=== PATIENT | male | born 1975 | race Caucasian/White ===

== ENCOUNTER 2019-08-06 09:54 | Emergency (ER) | payer BC, OTHER ==
[2019-08-06] MEDS ORDERED: MORPHINE 4 MG/ML SYR ONE (10:34)
[2019-08-06] MEDS ORDERED: ONDANSETRON 4 MG/2 ML VIAL ONE (10:34)
[2019-08-06 10:59] LABS: Absolute Lymphocytes (CBC) 2.2 K/uL (0.7-4.9); Basophils % 0.9 % (0-1.3); Hematocrit 46.2 % (39.6-49.0); Lymphocytes % 28.3 % (15.3-44.8); MPV 8.5 fL (7.6-11.3); RBC Red Blood Cell Count 5.33 M/uL (4.33-5.43)
[2019-08-06 11:17] LABS: ALT/SGPT 28 U/L (12-78); AST/SGOT 17 U/L (15-37); Albumin 3.4 g/dL (3.4-5.0); Alkaline Phosphatase 110 U/L (45-117); BUN Blood Urea Nitrogen 13 mg/dL (7-18); Bicarbonate 25 mmol/L (21-32); Bilirubin Total 0.9 mg/dL (0.2-1.0); Glucose Level 209 mg/dL (74-106); Potassium 3.8 mmol/L (3.5-5.1); Protein, Total 7.8 g/dL (6.4-8.2); Sodium Level 136 mmol/L (136-145)
[2019-08-06] MEDS ORDERED: FENTANYL CITR 100 MCG/2 ML ONE (11:38)
--- NOTE | 2019-08-06 11:56 | EDPHYS ---
Physician Documentation [facility] Name: Dari Cedeño Age: 43 yrs Sex: Male : 1975 Arrival Date: 08/06/2019 Time: 09:57 Bed 5 Private MD: ED Physician Alan eBrry HPI: 08/06 10:28 This 43 yrs old Male presents to ER via Ambulatory with complaints of Abscess.jmm 10:28 The patient presents with an abscess of the scrotum. Onset: The symptoms/episode jmm began/occurred gradually, 2 day(s) ago. Possible cause(s): unknown. Associated signs and symptoms: Pertinent positives: erythema, swelling, Pertinent negatives: fever. This is a 43 year old male with a history of dm that presents to the ED with complaints of left groin pain and swelling beginning this past . Patient denies fever or chills. Pain intensified last night. . Historical: - Allergies: 10:08 No Known Allergies; hb - Home Meds: 10:08 None [Active]; hb - PMHx: 10:08 Diabetes - NIDDM; hb - PSHx: 10:08 Abscess - scrotum; Appendectomy; Tonsillectomy; hb 10:09 Vasectomy; hb - Immunization history:: Adult Immunizations up to date. - Coronavirus screen:: The patient has NOT traveled to [place], [place], or [place] in the past 14 days. The patient has NOT had contact with known/suspected case of Coronavirus? Proceed with normal triage procedures. - Social history:: Smoking status: Patient reports the use of cigarette tobacco products, smokes two packs cigarettes per day. - Ebola Screening: : No symptoms or risks identified at this time. ROS: 10:28 Constitutional: Negative for fever, chills, and weight loss, Cardiovascular: Negative jmm for chest pain, palpitations, and edema, Respiratory: Negative for shortness of breath, cough, wheezing, and pleuritic chest pain. 10:28 Skin: Positive for erythema, swelling. 10:28 All other systems are negative. Exam: 10:28 Constitutional: This is a well developed, well nourished patient who is awake, alert, jmm and in no acute distress. Head/Face: atraumatic. Eyes: EOMI, no conjunctival erythema appreciated ENT: Moist Mucus Membranes Neck: Trachea midline, Supple Chest/axilla: Normal chest wall appearance and motion. Cardiovascular: Regular rate and rhythm. No edema appreciated Respiratory: Normal respirations, no respiratory distress appreciated Abdomen/GI: Non distended, soft Back: Normal ROM 10:28 Skin: swelling and purulent drainage noted to the left groin. 10:28 Neuro: Orientation: is normal, Mentation: is normal, appropriate for stated age, Memory: is normal. 10:28 Psych: Behavior/mood is pleasant, cooperative. Vital Signs: 10:09 BP 159 / 86; Pulse 78; Resp 16; Temp 98.1(O); Pulse Ox 100% on R/A; Weight 125.65 kg; hb Height 6 ft. (182.88 cm); Pain 8/10; 11:04 BP 125 / 68; Pulse 79; Resp 16; Pulse Ox 99% on R/A; em 10:09 Body Mass Index 37.57 (125.65 kg, 182.88 cm) hb MDM: 10:23 Patient medically screened. toma 10:30 ED course: A large amount of foul smelling purulent drainage noted upon removing m bandage. . 11:53 Data reviewed: vital signs, nurses notes. Counseling: I had a detailed discussion with [facility] the patient and/or guardian regarding: the historical points, exam findings, and any diagnostic results supporting the discharge/admit diagnosis, lab results, the need for outpatient follow up, to return to the emergency department if symptoms worsen or persist or if there are any questions or concerns that arise at home. ED course: Wound copious irrigated. A large amount of purulent drainage was expressed. Labs unremarkable. Patient is advised to follow up with gen surgery/urology for reevaluation. Patient otherwise given strict return precautions. Patient understood and agrees with the plan of care. . 08/06 10:26 Order name: CBC with Diff; Complete Time: 11:12 [facility] 08/06 10:26 Order name: CMP; Complete Time: 11:42 [facility] 08/06 10:26 Order name: Lactate; Complete Time: 11:12 [facility] 08/06 10:26 Order name: Procalcitonin; Complete Time: 11:42 [facility] 08/06 10:26 Order name: Saline Lock; Complete Time: 10:53 [facility] Administered Medications: 10:45 Drug: Zofran 4 mg Route: IVP; Site: left forearm; em 11:00 Follow up: Response: No adverse reaction em 10:47 Drug: morphine 4 mg Route: IVP; Site: left forearm; em 11:00 Follow up: Response: No adverse reaction; Marked relief of symptoms; Pain is decreased em 11:34 Drug: fentaNYL (PF) 50 mcg Route: IVP; Site: left forearm; em 11:38 Follow up: Response: No adverse reaction hb 12:09 Drug: Bactrim (160 mg-800 mg (DS) 1 tablet Route: PO; em 12:18 Follow up: Response: Medication administered at discharge. hb 12:09 Drug: Doxycycline 100 mg Route: PO; em 12:18 Follow up: Response: Medication administered at discharge. hb Disposition: 08/06/19 11:55 Discharged to Home. Impression: Cutaneous abscess of groin. - Condition is Stable. - Discharge Instructions: Skin Abscess. - Prescriptions for Tylenol- Codeine #3 300-30 mg Oral Tablet - take 1 tablet by ORAL route every 6 hours As needed; 20 tablet. Doxycycline Hyclate 100 mg Oral Tablet - take 1 tablet by ORAL route every 12 hours; 20 tablet. Bactrim DS 800- 160 mg Oral Tablet - take 1 tablet by ORAL route every 12 hours for 10 days; 20 tablet. - Medication Reconciliation Form, Thank You Letter, Antibiotic Education, Prescription Opioid Use, Work release form form. - Follow up: Chris Hamlin MD; When: 2 - 3 days; Reason: Recheck today's complaints, Continuance of care, Re-evaluation by your physician. Follow up: Micheal Gayle MD; When: 2 - 3 days; Reason: Recheck today's complaints, Continuance of care, Re-evaluation by your physician. Addendum: 08/08/2019 07:03 Co-signature as Attending Physician, Alan Berry MD I agree with the assessment and c mujica plan of care. Signatures: Dispatcher [employer] Alan Riggs MD MD cha Mickail, Joel, PA PA jmm Munoz, Edgar, RN RN em Judy Vera RN RN aa5 Kristen Martinez RN RN Corrections: (The following items were deleted from the chart) 08/06 11:32 10:28 Pelvis W/Cont+CT.RAD.BRZ ordered. EDMS EDMS 11:51 10:28 This is a 43 year old male with a history of dm that presents to the ED with finesse complaints of left scrotal pain and swelling beginning this past . Patient denies fever or chills. Pain intensified last night. . [facility] 11:51 10:28 Skin: swelling noted to the scrotum. [facility] 12:22 11:55 08/06/2019 11:55 Discharged to Home. Impression: Cutaneous abscess of groin. em Condition is Stable. Forms are Medication Reconciliation Form, Thank You Letter, Antibiotic Education, Prescription Opioid Use. Follow up: Chris Hamlin; When: 2 - 3 days; Reason: Recheck today's complaints, Continuance of care, Re-evaluation by your physician. Follow up: Micheal Gayle; When: 2 - 3 days; Reason: Recheck today's complaints, Continuance of care, Re-evaluation by your physician. [facility]
--- NOTE | 2019-08-06 11:56 | ER ---
Nurse's Notes [facility] Name: Dari Cedeño Age: 43 yrs Sex: Male : 1975 Arrival Date: 08/06/2019 Time: 09:57 Bed 5 Private MD: Diagnosis: Cutaneous abscess of groin Presentation: 08/06 10:06 Presenting complaint: Abscess on scrotum x 3 days, pain radiates to left thigh. hb Transition of care: patient was not received from another setting of care. Onset of symptoms was October 03, 2019. Risk Assessment: Do you want to hurt yourself or someone else? Patient reports no desire to harm self or others. Initial Sepsis Screen: Does the patient meet any 2 criteria? No. Patient's initial sepsis screen is negative. Does the patient have a suspected source of infection? No. Patient's initial sepsis screen is negative. Care prior to arrival: None. 10:06 Method Of Arrival: Ambulatory hb 10:06 Acuity: ANGEL 4 hb Historical: - Allergies: 10:08 No Known Allergies; hb - Home Meds: 10:08 None [Active]; hb - PMHx: 10:08 Diabetes - NIDDM; hb - PSHx: 10:08 Abscess - scrotum; Appendectomy; Tonsillectomy; hb 10:09 Vasectomy; hb - Immunization history:: Adult Immunizations up to date. - Coronavirus screen:: The patient has NOT traveled to [place], [place], or [place] in the past 14 days. The patient has NOT had contact with known/suspected case of Coronavirus? Proceed with normal triage procedures. - Social history:: Smoking status: Patient reports the use of cigarette tobacco products, smokes two packs cigarettes per day. - Ebola Screening: : No symptoms or risks identified at this time. Screenin:10 Abuse screen: Denies threats or abuse. Nutritional screening: No deficits noted. em Tuberculosis screening: No symptoms or risk factors identified. Fall Risk None identified. Assessment: 10:22 General: Appears in no apparent distress. comfortable, Behavior is calm, cooperative, em Denies fever. Pain: Complains of pain in groin Pain currently is 2 out of 10 on a pain scale. at worst was 10 out of 10 on a pain scale. Pain began 2-3 days ago. Aggravated by exercise, repositioning. Neuro: Level of Consciousness is awake, alert, obeys commands, Oriented to person, place, time, situation, Appropriate for age. Cardiovascular: Capillary refill < 3 seconds Patient's skin is warm and dry. Respiratory: Airway is patent Respiratory effort is even, unlabored, Respiratory pattern is regular, symmetrical. GI: Patient currently denies nausea, vomiting. : Swelling noted. Derm: Skin is intact, is healthy with good turgor, Skin is pink, warm \T\ dry. Musculoskeletal: Capillary refill < 3 seconds, Range of motion: intact in all extremities. 11:00 Reassessment: Patient appears in no apparent distress at this time. Patient and/or em family updated on plan of care and expected duration. Pain level reassessed. Patient is alert, oriented x 3, equal unlabored respirations, skin warm/dry/pink. Patient denies pain at this time. Patient states feeling better. Vital Signs: 10:09 BP 159 / 86; Pulse 78; Resp 16; Temp 98.1(O); Pulse Ox 100% on R/A; Weight 125.65 kg; hb Height 6 ft. (182.88 cm); Pain 8/10; 11:04 BP 125 / 68; Pulse 79; Resp 16; Pulse Ox 99% on R/A; em 10:09 Body Mass Index 37.57 (125.65 kg, 182.88 cm) hb ED Course: 09:57 Patient arrived in ED. mr 10:07 Triage completed. hb 10:09 Arm band placed on. hb 10:10 Chano Recinos, RN is Primary Nurse. em 10:10 Patient has correct armband on for positive identification. Placed in gown. Bed in low em position. Call light in reach. Side rails up X2. 10:17 Steffen Hinton PA is PHCP. louise 10:17 Alan Berry MD is Attending Physician. jmm 10:34 Radiology exam delayed due to lab results not completed at this time. (BUN/Creatinine). bq 10:45 Initial lab(s) drawn, by me, sent to lab. Inserted saline lock: 20 gauge in left hb forearm, using aseptic technique. Blood collected. 11:40 Assist provider with I \T\ D: of an abscess on left scrotal area Set up I\T\D tray. hb Performed by Steffen MILLS Dressing with 4X4s, tape Patient tolerated well. 11:55 Chris Hamlin MD is Referral Physician. [facility] 11:55 Micheal Gayle MD is Referral Physician. [facility] 12:16 IV discontinued, intact, bleeding controlled, No redness/swelling at site. Pressure hb dressing applied. Administered Medications: 10:45 Drug: Zofran 4 mg Route: IVP; Site: left forearm; em 11:00 Follow up: Response: No adverse reaction em 10:47 Drug: morphine 4 mg Route: IVP; Site: left forearm; em 11:00 Follow up: Response: No adverse reaction; Marked relief of symptoms; Pain is decreased em 11:34 Drug: fentaNYL (PF) 50 mcg Route: IVP; Site: left forearm; em 11:38 Follow up: Response: No adverse reaction hb 12:09 Drug: Bactrim (160 mg-800 mg (DS) 1 tablet Route: PO; em 12:18 Follow up: Response: Medication administered at discharge. hb 12:09 Drug: Doxycycline 100 mg Route: PO; em 12:18 Follow up: Response: Medication administered at discharge. Outcome: 11:55 Discharge ordered by MD. [facility] 12:16 Discharged to home ambulatory, with family. 12:16 Condition: good 12:16 Discharge instructions given to patient, family, Instructed on discharge instructions, follow up and referral plans. medication usage, wound care, Demonstrated understanding of instructions, follow-up care, medications, wound care, Prescriptions given X 3. 12:22 Patient left the ED. em Signatures: Steffen Hinton PA PA [facility] Divya Mijares Kirstie Chano Franco, RN RN Kristen Martinez RN RN hb
[2019-08-06] MEDS ORDERED: SMZ./TMP. 800/160 MG TABLET ONE (12:03)
[2019-08-06] MEDS ORDERED: DOXYCYCLINE 100 MG CAP PO ONE (12:04)
[2019-08-06 12:32] VITALS: TEMP 98.1
[2019-08-06 12:33] VITALS: BP 125/68; O2SAT 99
== END 2019-08-06 12:22 | disposition home or self-care (01) ==
LOC: ER 09:54
DX: L02.214 Cutaneous abscess of groin (principal); E11.9 Type 2 diabetes mellitus without complications; F17.210 Nicotine dependence, cigarettes, uncomplicated
CPT/HCPCS: 85025; 36415; 83605; 80053; 84145; 96375; 96374; 99284; J3010; J2405

== ENCOUNTER 2020-03-18 12:09 | Emergency (ER) | payer OTHER, SELFPAY ==
[2020-03-18 12:30] LABS: Absolute Lymphocytes (CBC) 1.2 K/uL (0.7-4.9); Basophils % 0.9 % (0-1.3); Hematocrit 44.8 % (39.6-49.0); Lymphocytes % 23.3 % (15.3-44.8); MPV 8.3 fL (7.6-11.3); RBC Red Blood Cell Count 5.15 M/uL (4.33-5.43)
[2020-03-18 12:31] LABS: Protime INR 1.03
--- NOTE | 2020-03-18 12:35 | RAD REPORT ---
EXAM DESCRIPTION: RAD - Chest Single View - 03/18/2020 12:29 pm CLINICAL HISTORY: Dizziness Chest pain. COMPARISON: CHEST PA AND LAT 2 VIEW dated 09/26/2008 FINDINGS: Portable technique limits examination quality. The lungs are grossly clear. The heart is normal in size. No displaced fractures. IMPRESSION: No acute intrathoracic process suspected.
[2020-03-18] MEDS ORDERED: MECLIZINE HCL 12.5 MG TAB ONE (12:43)
[2020-03-18 12:52] LABS: ALT/SGPT 34 U/L (12-78); AST/SGOT 17 U/L (15-37); Albumin 3.4 g/dL (3.4-5.0); Alkaline Phosphatase 113 U/L (45-117); BUN Blood Urea Nitrogen 15 mg/dL (7-18); Bicarbonate 25 mmol/L (21-32); Bilirubin Direct 0.2 mg/dL (0-0.2); Bilirubin Total 0.6 mg/dL (0.2-1.0); Glucose Level 260 mg/dL (74-106); Magnesium 2.1 mg/dL (1.8-2.4); NT PRO-BNP 30 pg/mL (<125); Potassium 3.9 mmol/L (3.5-5.1); Sodium Level 136 mmol/L (136-145); Troponin (Emerg Dept Use Only) < 0.02 ng/mL (0.0-0.045)
--- NOTE | 2020-03-18 13:20 | RAD REPORT ---
EXAM DESCRIPTION: CT - Head Brain Wo Cont - 03/18/2020 1:07 pm CLINICAL HISTORY: DIZZINESS Headache, drowsiness COMPARISON: No comparisons TECHNIQUE: All CT scans are performed using dose optimization technique as appropriate and may inclu de automated exposure control or mA/KV adjustment according to patient size. FINDINGS: No intracranial hemorrhage, hydrocephalus or extra-axial fluid collection.No areas of brai n edema or evidence of midline shift. The paranasal sinuses and mastoids are clear. The calvarium is intact. IMPRESSION: No acute intracranial abnormality.
[2020-03-18 14:24] LABS: Urine Blood NEGATIVE (NEG); Urine Glucose 2+ (NEG); Urine Protein NEGATIVE (NEG); Urine Specific Gravity 1.025 (1.005-1.030); Urine pH 5.5 (5.0-7.0)
[2020-03-18 14:56] LABS: Barbiturates NEGATIVE (NEGATIVE); Benzodiazepines NEGATIVE (NEGATIVE); Cocaine NEGATIVE (NEGATIVE); METHAMPHETAM NEGATIVE (NEGATIVE); Methadone NEGATIVE (NEGATIVE); Opiates NEGATIVE (NEGATIVE); Phencyclidine NEGATIVE (NEGATIVE); THC Cannibis NEGATIVE (NEGATIVE)
--- NOTE | 2020-03-18 17:48 | ER ---
Nurse's Notes [facility] Name: Dari Cedeño Age: 44 yrs Sex: Male : 1975 Arrival Date: 03/18/2020 Time: 12:12 Bed 19 Private MD: Diagnosis: Benign paroxysmal vertigo;Hyperglycemia, unspecified Presentation: 03/18 12:19 Chief complaint: EMS states: CALLED TO PT HOME FOR NAUSEA, VOMITING AND DIZZINESS. PT ls4 FOUND TO BE DIAPHORETIC AND VOMITING UPON ARRIVAL. VSS. 250 NS AND 8 MG ZOFRAN GIVEN BY EMS. BGL 284. Coronavirus screen: At this time, the client does not indicate any symptoms associated with coronavirus-19. Ebola Screen: No symptoms or risks identified at this time. Initial Sepsis Screen: Does the patient meet any 2 criteria? No. Patient's initial sepsis screen is negative. Does the patient have a suspected source of infection? No. Patient's initial sepsis screen is negative. Risk Assessment: Do you want to hurt yourself or someone else? Patient reports no desire to harm self or others. Onset of symptoms was March 18, 2020 at 11:30. Care prior to arrival: Medication(s) given: Normal saline infusion, 250 ML zofran 8 mg, IV initiated. 20 GA, in the right forearm, Glucose check: 284. Activity prior to arrival: vomiting. Transition of care: patient was not received from another setting of care. 12:19 Method Of Arrival: EMS: [facility] ls4 12:19 Acuity: ANGEL 2 ls4 Triage Assessment: 12:26 General: Appears in no apparent distress. comfortable, obese, Behavior is calm, ls4 cooperative. Pain: Denies pain. Neuro: No deficits noted. Cardiovascular: Denies chest pain, Chest pain is denied. Respiratory: Airway is patent Respiratory effort is even, unlabored, Respiratory pattern is regular, Denies cough, shortness of breath labored breathing, pain with respiration, pain with cough, pain with movement. GI: Abdomen is non-distended, obese, Bowel sounds present X 4 quads. Abd is soft and non tender X 4 quads. Reports VOMITTING EARLIER TODAY, SYMPTOMS RESOLVED. : No deficits noted. No signs and/or symptoms were reported regarding the genitourinary system. Derm: No deficits noted. No signs and/or symptoms reported regarding the dermatologic system. Musculoskeletal: No deficits noted. No signs and/or symptoms reported regarding the musculoskeletal system. Historical: - Allergies: 12:26 No Known Allergies; ls4 - PMHx: 12:26 Diabetes - NIDDM; ls4 - PSHx: 12:26 Abscess - scrotum; Appendectomy; Tonsillectomy; Vasectomy; ls4 - Immunization history:: Adult Immunizations up to date, Last tetanus immunization: < 5 years ago Flu vaccine is not up to date. Patient has never been vaccinated. - Social history:: Smoking status: Patient reports the use of cigarette tobacco products, smokes one pack cigarettes per day. Screenin:39 Abuse screen: Denies threats or abuse. Denies injuries from another. Nutritional ls4 screening: No deficits noted. Tuberculosis screening: No symptoms or risk factors identified. Fall Risk None identified. Assessment: 12:29 General: SEE TRIAGE ASSESSMENT . ls4 14:00 Reassessment: Patient appears in no apparent distress at this time. Patient and/or ls4 family updated on plan of care and expected duration. Pain level reassessed. Patient is alert, oriented x 3, equal unlabored respirations, skin warm/dry/pink. 15:00 Reassessment: Patient appears in no apparent distress at this time. Patient and/or ls4 family updated on plan of care and expected duration. Pain level reassessed. Patient is alert, oriented x 3, equal unlabored respirations, skin warm/dry/pink. 16:04 Reassessment: Patient appears in no apparent distress at this time. Patient and/or ls4 family updated on plan of care and expected duration. Pain level reassessed. Patient is alert, oriented x 3, equal unlabored respirations, skin warm/dry/pink. Vital Signs: 12:12 BP 143 / 70 LA (auto/reg); Pulse 75; Resp 17; Temp 96.7; Pulse Ox 99% on R/A; Weight jp3 120.2 kg (R); Height 6 ft. (182.88 cm) (R); Pain 0/10; 13:30 BP 139 / 81; Pulse 59; Resp 16; Pulse Ox 99% on R/A; Pain 0/10; ls4 14:30 BP 109 / 65; Pulse 60; Resp 16; Pulse Ox 99% on R/A; Pain 0/10; ls4 15:30 BP 116 / 68; Pulse 62; Resp 16; Pulse Ox 99% on R/A; Pain 0/10; ls4 16:30 BP 123 / 73; Pulse 62; Resp 16; Pulse Ox 99% on R/A; Pain 0/10; ls4 17:59 BP 127 / 65; Pulse 65; Resp 16; Temp 98.0(O); Pulse Ox 99% on R/A; Pain 0/10; ls4 12:12 Body Mass Index 35.94 (120.20 kg, 182.88 cm) jp3 ED Course: 12:12 Patient arrived in ED. ls4 12:12 Elvis Herzog NP is PHCP. pm1 12:12 Alan Berry MD is Attending Physician. pm1 12:13 Patient has correct armband on for positive identification. Bed in low position. Call jp3 light in reach. Side rails up X2. Warm blanket given. Verbal reassurance given. teletypesetter monitor on. Pulse ox on. NIBP on. 12:14 Patient maintains SpO2 saturation greater than 95% on room air. jp3 12:15 Arm band placed on. ls4 12:15 Initial lab(s) drawn, by me, sent to lab. EKG done, by ED staff, reviewed by Alan Berry MD. Maintain EMS IV. Dressing intact. Good blood return noted. Site clean \T\ dry. Gauge \T\ site: 20gauge Left Forearm. 12:22 Triage completed. ls4 12:29 XRAY Chest (1 view) In Process Unspecified. EDMS 12:29 XRAY Chest (1 view) Sent. ls4 12:42 Shani Dailey, RN is Primary Nurse. ls4 13:08 CT Head Brain wo Cont In Process Unspecified. EDMS 14:00 Urine collected: clean catch specimen, clear, alonzo colored, Legal drug screen obtained jp3 per protocol. 16:09 No provider procedures requiring assistance completed. ls4 16:49 Repeat lab(s) drawn. by me, sent to lab. jp3 16:50 Troponin (emerg Dept Use Only) Sent. jp3 Administered Medications: 12:29 Drug: Meclizine 50 mg Route: PO; ls4 13:01 Follow up: Response: No adverse reaction; Marked relief of symptoms ls4 12:29 Drug: NS 0.9% 1000 ml Route: IV; Rate: 1000 ml; Site: right forearm; ls4 20:28 Follow up: IV Intake: 1000ml ls4 Intake: 20:28 IV: 1000ml; Total: 1000ml. ls4 Outcome: 17:48 Discharge ordered by . cassy 18:24 Patient left the ED. ls4 Signatures: Dispatcher [employer] EDMS Ngoc Brooks, EDDA PETERSON-Elvis Martin NP [employer] ATTEND[employer] pm1 Anders Bustillo jp3 Shani Dailey, RN RN ls4
--- NOTE | 2020-03-18 17:48 | EDPHYS ---
Physician Documentation [facility] Name: Dari Cedeño Age: 44 yrs Sex: Male : 1975 Arrival Date: 03/18/2020 Time: 12:12 Bed 19 Private MD: ED Physician Alan Berry HPI: 03/18 16:44 This 44 yrs old Male presents to ER via EMS with complaints of Dizziness. pm1 16:44 The patient presents with vertigo. Onset: The symptoms/episode began/occurred 1 hour pm1 prior to arrival. Context: occurred at home, occurred while the patient was sitting, and moving head. just prior to the episode the patient experienced no apparent symptoms. Modifying factors: The symptoms are alleviated by holding head still, the symptoms are aggravated by movement of head, changing position. Associated signs and symptoms: Pertinent negatives: abdominal pain, chest pain, numbness, tingling. Severity of symptoms: in the emergency department the symptoms have improved improved with zofran by EMS. Patient's baseline: Neuro: alert and fully oriented, Motor: no deficits, Ambulation: walks without assistance, Speech: normal. The patient has not experienced similar symptoms in the past, but friend has similar symptoms. The patient has not recently seen a physician. Historical: - Allergies: 12:26 No Known Allergies; ls4 - PMHx: 12:26 Diabetes - NIDDM; ls4 - PSHx: 12:26 Abscess - scrotum; Appendectomy; Tonsillectomy; Vasectomy; ls4 - Immunization history:: Adult Immunizations up to date, Last tetanus immunization: < 5 years ago Flu vaccine is not up to date. Patient has never been vaccinated. - Social history:: Smoking status: Patient reports the use of cigarette tobacco products, smokes one pack cigarettes per day. ROS: 16:44 Constitutional: Negative for fever, chills, and weight loss, Cardiovascular: Negative pm1 for chest pain, palpitations, and edema, Respiratory: Negative for shortness of breath, cough, wheezing, and pleuritic chest pain, Abdomen/GI: Negative for abdominal pain, nausea, vomiting, diarrhea, and constipation, Back: Negative for injury and pain, MS/Extremity: Negative for injury and deformity, Skin: Negative for injury, rash, and discoloration. 16:44 Neuro: Positive for dizziness, Negative for headache, numbness, tingling, weakness. Exam: 16:44 Constitutional: This is a well developed, well nourished patient who is awake, alert, pm1 and in no acute distress. Head/Face: Normocephalic, atraumatic. Neck: Trachea midline, no thyromegaly or masses palpated, and no cervical lymphadenopathy. Supple, full range of motion without nuchal rigidity, or vertebral point tenderness. No Meningismus. 16:44 Back: No spinal tenderness. No costovertebral tenderness. Full range of motion. Skin: Warm, dry with normal turgor. Normal color with no rashes, no lesions, and no evidence of cellulitis. MS/ Extremity: Pulses equal, no cyanosis. Neurovascular intact. Full, normal range of motion. 16:44 Cardiovascular: Exam negative for acute changes, Rate: normal, Rhythm: regular, Pulses: no pulse deficits are appreciated, Edema: is not appreciated. 16:44 Respiratory: Exam negative for acute changes, respiratory distress, shortness of breath. 16:44 Abdomen/GI: Exam negative for acute changes, Inspection: obese Palpation: abdomen is soft and non-tender, in all quadrants. 16:44 Neuro: Exam negative for acute changes, Orientation: is normal, Mentation: is normal, Motor: is normal, moves all fours. Vital Signs: 12:12 BP 143 / 70 LA (auto/reg); Pulse 75; Resp 17; Temp 96.7; Pulse Ox 99% on R/A; Weight jp3 120.2 kg (R); Height 6 ft. (182.88 cm) (R); Pain 0/10; 13:30 BP 139 / 81; Pulse 59; Resp 16; Pulse Ox 99% on R/A; Pain 0/10; ls4 14:30 BP 109 / 65; Pulse 60; Resp 16; Pulse Ox 99% on R/A; Pain 0/10; ls4 15:30 BP 116 / 68; Pulse 62; Resp 16; Pulse Ox 99% on R/A; Pain 0/10; ls4 16:30 BP 123 / 73; Pulse 62; Resp 16; Pulse Ox 99% on R/A; Pain 0/10; ls4 17:59 BP 127 / 65; Pulse 65; Resp 16; Temp 98.0(O); Pulse Ox 99% on R/A; Pain 0/10; ls4 12:12 Body Mass Index 35.94 (120.20 kg, 182.88 cm) jp3 MDM: 12:12 Patient medically screened. pm1 16:47 Data reviewed: vital signs. Data interpreted: Pulse oximetry: on room air is 99 %. pm1 Interpretation: normal. 17:48 Counseling: I had a detailed discussion with the patient and/or guardian regarding: the kb historical points, exam findings, and any diagnostic results supporting the discharge/admit diagnosis, lab results, radiology results, the need for outpatient follow up, a family practitioner, to return to the emergency department if symptoms worsen or persist or if there are any questions or concerns that arise at home. 03/18 12:13 Order name: Basic Metabolic Panel; Complete Time: 13:17 pm03/18 12:13 Order name: CBC with Diff; Complete Time: 12:35 pm1 03/18 12:13 Order name: LFT's; Complete Time: 13:17 pm03/18 12:13 Order name: Magnesium; Complete Time: 13:17 pm03/18 12:13 Order name: NT PRO-BNP; Complete Time: 13:17 pm03/18 12:13 Order name: PT-INR; Complete Time: 12:35 pm1 03/18 12:13 Order name: Troponin (emerg Dept Use Only); Complete Time: 13:17 pm03/18 12:13 Order name: XRAY Chest (1 view); Complete Time: 13:17 pm03/18 12:13 Order name: CT Head Brain wo Cont; Complete Time: 13:25 pm03/18 12:19 Order name: UDS; Complete Time: 14:58 pm03/18 12:19 Order name: ETOH Level; Complete Time: 13:17 pm03/18 14:21 Order name: Urine Dipstick--Ancillary (enter results); Complete Time: 14:27 ss 03/18 15:45 Order name: Troponin (emerg Dept Use Only); Complete Time: 17:47 pm1 03/18 12:13 Order name: EKG; Complete Time: 12:14 pm03/18 12:13 Order name: Cardiac monitoring; Complete Time: 12:14 pm03/18 12:13 Order name: EKG - Nurse/Tech; Complete Time: 12:29 pm1 03/18 12:13 Order name: IV Saline Lock; Complete Time: 12:14 pm1 03/18 12:13 Order name: Labs collected and sent; Complete Time: 12:29 pm1 03/18 12:13 Order name: O2 Per Protocol; Complete Time: 12:14 pm1 03/18 12:13 Order name: O2 Sat Monitoring; Complete Time: 12:14 pm1 Administered Medications: 12:29 Drug: Meclizine 50 mg Route: PO; ls4 13:01 Follow up: Response: No adverse reaction; Marked relief of symptoms ls4 12:29 Drug: NS 0.9% 1000 ml Route: IV; Rate: 1000 ml; Site: right forearm; ls4 20:28 Follow up: IV Intake: 1000ml ls4 Disposition: 03/19 10:59 Co-signature as Attending Physician, Alan Berry MD I agree with the assessment and toma plan of care. Disposition: 03/18/20 17:48 Discharged to Home. Impression: Benign paroxysmal vertigo, Hyperglycemia, unspecified. - Condition is Stable. - Discharge Instructions: Benign Positional Vertigo, Hyperglycemia, Blood Glucose Monitoring, Adult, Diabetes and Exercise. - Prescriptions for Zofran ODT 4 mg Oral tablet,disintegrating - place 1 tablet by TRANSLINGUAL route every 8 hours As needed; 20 tablet. Meclizine 25 mg Oral Tablet - take 1 tablet by ORAL route every 8 hours As needed; 30 tablet. - Medication Reconciliation Form, Thank You Letter, Antibiotic Education, Prescription Opioid Use form. - Follow up: Emergency Department; When: As needed; Reason: Worsening of condition. Follow up: Private Physician; When: 2 - 3 days; Reason: Recheck today's complaints, Continuance of care, Re-evaluation by your physician. - Problem is new. - Symptoms have improved. Signatures: Dispatcher [employer] EDMS Ngoc Brooks, PHOTOGRAPHER LITHOGRAPHIC-C PHOTOGRAPHER LITHOGRAPHIC-Alan Patton MD MD cha Marinas, Patrick, NETWORK CABLER NETWORK CABLER pm1 Shani Dailey RN RN ls4 Corrections: (The following items were deleted from the chart) 03/18 18:24 17:48 03/18/2020 17:48 Discharged to Home. Impression: Benign paroxysmal vertigo; ls4 Hyperglycemia, unspecified. Condition is Stable. Discharge Instructions: Benign Positional Vertigo, Hyperglycemia, Blood Glucose Monitoring, Adult, Diabetes and Exercise. Prescriptions for Zofran ODT 4 mg Oral tablet,disintegrating - place 1 tablet by TRANSLINGUAL route every 8 hours As needed; 20 tablet, Meclizine 25 mg Oral Tablet - take 1 tablet by ORAL route every 8 hours As needed; 30 tablet. and Forms are Medication Reconciliation Form, Thank You Letter, Antibiotic Education, Prescription Opioid Use. Follow up: Emergency Department; When: As needed; Reason: Worsening of condition. Follow up: Private Physician; When: 2 - 3 days; Reason: Recheck today's complaints, Continuance of care, Re-evaluation by your physician. Problem is new. Symptoms have improved. kb
[2020-03-18 19:25] VITALS: O2SAT 99
[2020-03-18 19:32] VITALS: BP 127/65; TEMP 98
== END 2020-03-18 18:24 | disposition home or self-care (01) ==
LOC: ER 12:09
DX: H81.10 Benign paroxysmal vertigo, unspecified ear (principal); E11.65 Type 2 diabetes mellitus with hyperglycemia; F17.210 Nicotine dependence, cigarettes, uncomplicated
CPT/HCPCS: 36415; 70450; 71045; 80048; 80076; 80307; 80320; 81003; 83735; 83880; 84484; 85025; 85610; 93005; 99285; J8597